=== PATIENT | female | born 1985 | race Caucasian/White ===

== ENCOUNTER 2025-05-29 00:08 | Emergency (ER) | payer OTHER ==
[~2025-05-29] VITALS: Ht 170.2 cm; Wt 61.2 kg
[~2025-05-29 00:08] MED LIST: HYDACE5325 PO; IBUP800 PO; PERM5TC TOP; Verotin-Gr Cap1 EACH
[2025-05-29 01:00] VITALS: BP 119/82
[2025-05-29] MEDS ORDERED: RX Prepack 6 Tabs Oxycodone 5mg UD ONE (01:30)
== END 2025-05-29 01:38 | disposition home or self-care (01) ==
LOC: ER 00:08
DX: S22.41XA Multiple fractures of ribs, right side, initial encounter for closed fracture (principal); W01.10XA Fall on same level from slipping, tripping and stumbling with subsequent striking against unspecified object, initial encounter; F17.200 Nicotine dependence, unspecified, uncomplicated
CPT/HCPCS: 71101; 99283-25; A9270